=== PATIENT | female | born 1950 | race Caucasian/White ===

== ENCOUNTER 2020-09-23 04:40 | Day surgery (SDC) | payer OTHER ==
[2020-09-22 12:26] VITALS: BMI 22.9
[2020-09-23] MEDS ORDERED: LIDOCAINE HCL 2% JELLY 10 ML CARTRIDGE ONE (09:34)
[2020-09-23] MEDS ORDERED: ALBUTEROL SO4 HFA INHALER IH ONE (09:50)
[2020-09-23 10:00] VITALS: TEMP 97.6
[2020-09-23 11:24] VITALS: BP 139/61; PULSE 67
== END 2020-09-23 11:15 | disposition home or self-care (01) ==
LOC: JASU-ENDO 04:40
PROVIDERS: ATTEND Internal Medicine Gastroenterology
PROC: 0DBG8ZX Excision of Left Large Intestine, Via Natural or Artificial Opening Endoscopic, Diagnostic (ICD-10-PCS; 2020-09-23)
PROC: 0DBP8ZX Excision of Rectum, Via Natural or Artificial Opening Endoscopic, Diagnostic (ICD-10-PCS; principal; 2020-09-23 09:15)
DX: Z12.11 Encounter for screening for malignant neoplasm of colon (principal); Z86.010 Personal history of colon polyps; K62.0 Anal polyp; D12.6 Benign neoplasm of colon, unspecified
CPT/HCPCS: 88305-TC

== ENCOUNTER 2021-03-23 10:52 | Inpatient (IN) | payer OTHER ==
[2021-03-23 15:19] LABS: BASO % 0.5 % (0-2.0); EOS % 0.3 % (0-4.5); HEMOGLOBIN 13.6 GM/dL (10.7-15.3); LYMPH % 25.5 % (8-40); MCH 30.9 pg (25.7-33.7); MCHC 33.3 g/dl (32.0-36.0); MEAN CELL VOLUME 92.8 fl (80-96); MEAN PLT VOLUME 9.4 fl (7.5-11.1); MONO % 5.4 % (3.8-10.2); NEUT % 68.3 % (42.8-82.8); PLATELET COUNT 258 10^3/uL (134-434); RBC 4.42 M/mm3 (3.60-5.2); RDW 13.9 % (11.6-15.6); WHITE BLOOD COUNT 9.1 K/mm3 (4.0-10.0)
[2021-03-23 15:43] LABS: ALBUMIN 3.8 g/dl (3.4-5.0); BLOOD UREA NITROGEN 10.2 mg/dL (7-18); CALCIUM 9.4 mg/dL (8.5-10.1)
[2021-03-23 15:46] LABS: CREATININE 0.8 mg/dL (0.55-1.3)
[2021-03-23 15:48] LABS: BILIRUBIN,TOTAL 0.4 mg/dL (0.2-1); TOT PROT 7.3 g/dl (6.4-8.2)
[2021-03-23] MEDS ORDERED: PIPERACILLIN/TAZOB 4.5 GM 4.5 GM in DEXTROSE 5%-WATER 100 ML IVPB ONE (19:03)
[2021-03-23] MEDS ORDERED: VANCOMYCIN 1 GM in D5W (PRE-DOCKED) 1,000 MG/250 ML IVPB ONE (19:04)
[2021-03-23] MEDS ORDERED: LACTATED RINGERS SOLUTION 1,000 ML/1,000 ML INFUS.BAG IV SCH (19:15)
[2021-03-24 02:14] LABS: HEMATOCRIT 36.5 % (32.4-45.2); HEMOGLOBIN 12.3 GM/dL (10.7-15.3); MCH 31.2 pg (25.7-33.7); MCHC 33.8 g/dl (32.0-36.0); MEAN CELL VOLUME 92.1 fl (80-96); MEAN PLT VOLUME 8.9 fl (7.5-11.1); PLATELET COUNT 239 10^3/uL (134-434); RBC 3.96 M/mm3 (3.60-5.2); RDW 13.7 % (11.6-15.6); WHITE BLOOD COUNT 7.8 K/mm3 (4.0-10.0)
[2021-03-24 05:44] VITALS: BMI 22.5
[2021-03-24 09:36] LABS: HEMATOCRIT 39.4 % (32.4-45.2); HEMOGLOBIN 13.1 GM/dL (10.7-15.3); MCH 31.4 pg (25.7-33.7); MCHC 33.4 g/dl (32.0-36.0); MEAN CELL VOLUME 94.1 fl (80-96); MEAN PLT VOLUME 9.8 fl (7.5-11.1); PLATELET COUNT 236 10^3/uL (134-434); RBC 4.18 M/mm3 (3.60-5.2); RDW 13.6 % (11.6-15.6); WHITE BLOOD COUNT 6.7 K/mm3 (4.0-10.0)
[2021-03-24 09:48] LABS: INR 1.12 (0.83-1.09); PROTHROMBIN TIME (PATIENT) 12.6 SEC (9.7-13.0)
[2021-03-24 09:51] LABS: ACTIVATED PTT 17.5 SECONDS (25.2-36.5)
[2021-03-24 10:13] LABS: CALCIUM 8.6 mg/dL (8.5-10.1)
[2021-03-24 10:14] LABS: ALBUMIN 3.3 g/dl (3.4-5.0); MAGNESIUM 2.3 mg/dL (1.8-2.4)
[2021-03-24 10:16] LABS: CREATININE 0.6 mg/dL (0.55-1.3)
[2021-03-24 10:18] LABS: BILIRUBIN,TOTAL 0.5 mg/dL (0.2-1); TOT PROT 6.4 g/dl (6.4-8.2)
[2021-03-24] MEDS: LACTATED RINGERS SOLUTION 1,000 ML/1,000 ML INFUS.BAG IV SCH (11:35)
[2021-03-24 16:22] LABS: HEMATOCRIT 36.6 % (32.4-45.2); HEMOGLOBIN 12.2 GM/dL (10.7-15.3); MCH 30.7 pg (25.7-33.7); MCHC 33.3 g/dl (32.0-36.0); MEAN CELL VOLUME 92.3 fl (80-96); MEAN PLT VOLUME 9.4 fl (7.5-11.1); PLATELET COUNT 228 10^3/uL (134-434); RBC 3.97 M/mm3 (3.60-5.2); RDW 13.5 % (11.6-15.6); WHITE BLOOD COUNT 6.8 K/mm3 (4.0-10.0)
[2021-03-25] MEDS: LACTATED RINGERS SOLUTION 1,000 ML/1,000 ML INFUS.BAG IV SCH ×4 (00:42→18:36)
[2021-03-25 10:35] LABS: HEMATOCRIT 37.4 % (32.4-45.2); HEMOGLOBIN 12.4 GM/dL (10.7-15.3); MCH 31.1 pg (25.7-33.7); MCHC 33.2 g/dl (32.0-36.0); MEAN CELL VOLUME 93.7 fl (80-96); MEAN PLT VOLUME 9.4 fl (7.5-11.1); PLATELET COUNT 232 10^3/uL (134-434); RBC 3.99 M/mm3 (3.60-5.2); RDW 13.6 % (11.6-15.6); WHITE BLOOD COUNT 4.7 K/mm3 (4.0-10.0)
[2021-03-25 10:55] LABS: CALCIUM 8.3 mg/dL (8.5-10.1)
[2021-03-25 10:59] LABS: CREATININE 0.7 mg/dL (0.55-1.3)
[2021-03-26 08:39] LABS: BASO % 0.9 % (0-2.0); EOS % 5.8 % (0-4.5); HEMATOCRIT 39.6 % (32.4-45.2); HEMOGLOBIN 13.1 GM/dL (10.7-15.3); LYMPH % 40.3 % (8-40); MCH 30.9 pg (25.7-33.7); MCHC 33.1 g/dl (32.0-36.0); MEAN CELL VOLUME 93.4 fl (80-96); MEAN PLT VOLUME 9.8 fl (7.5-11.1); MONO % 8.1 % (3.8-10.2); NEUT % 44.9 % (42.8-82.8); PLATELET COUNT 242 10^3/uL (134-434); RBC 4.24 M/mm3 (3.60-5.2); RDW 13.7 % (11.6-15.6); WHITE BLOOD COUNT 4.7 K/mm3 (4.0-10.0)
[2021-03-26 08:55] LABS: CALCIUM 8.4 mg/dL (8.5-10.1)
[2021-03-26 08:56] LABS: ALBUMIN 2.8 g/dl (3.4-5.0); BLOOD UREA NITROGEN 7.9 mg/dL (7-18)
[2021-03-26 08:59] LABS: CREATININE 0.7 mg/dL (0.55-1.3)
[2021-03-26 09:00] LABS: BILIRUBIN,TOTAL 0.5 mg/dL (0.2-1)
[2021-03-26 14:02] VITALS: BP 128/76; PULSE 73; TEMP 98.3
== END 2021-03-26 19:00 | disposition home or self-care (01) | DRG 394 ==
LOC: JER 10:52 → JERBED 20:15 → J8W 03-24 05:12
PROVIDERS: ADMIT Internal Medicine; ATTEND Internal Medicine
DX: K55.9 Vascular disorder of intestine, unspecified (principal); K62.5 Hemorrhage of anus and rectum
CPT/HCPCS: 36415; 74177-TC; 80048; 80053; 80061; 82272; 83605; 83615; 83735; 84443; 85025; 85027; 85610; 85730; 86140; 86850; 86900; 86901; 93005; 93010; 99285-25; C9803; Q9967; U0003; U0005

== ENCOUNTER 2021-05-19 05:02 | Day surgery (SDC) | payer OTHER ==
[2021-05-16 14:11] VITALS: BMI 23.5
[2021-05-19 11:15] VITALS: TEMP 98.2
[2021-05-19 12:26] VITALS: BP 122/66; PULSE 76
== END 2021-05-19 12:15 | disposition home or self-care (01) ==
LOC: JASU-ENDO 05:02
PROVIDERS: ATTEND Internal Medicine Gastroenterology
PROC: 0DJD8ZZ Inspection of Lower Intestinal Tract, Via Natural or Artificial Opening Endoscopic (ICD-10-PCS; principal; 2021-05-19 10:45)
DX: Z85.048 Personal history of other malignant neoplasm of rectum, rectosigmoid junction, and anus (principal); K57.30 Diverticulosis of large intestine without perforation or abscess without bleeding

== ENCOUNTER 2021-10-04 04:23 | Day surgery (SDC) | payer OTHER ==
[2021-09-29 10:59] VITALS: BMI 22.4
[2021-10-04] MEDS ORDERED: ONDANSETRON 4 MG/2 ML VIAL IVPUSH PRN (15:00)
[2021-10-04] MEDS ORDERED: oxyCODONE HCL 5 MG TABLET PO PRN (15:00)
[2021-10-04] MEDS ORDERED: LACTATED RINGERS SOLUTION 1,000 ML IV SCH (15:00)
[2021-10-04] MEDS ORDERED: PROPOFOL 20 ML ONE (16:11)
[2021-10-04] MEDS ORDERED: MIDAZOLAM HCL 2 MG/2 ML SINGLE DOSE VIAL ONE (16:11)
[2021-10-04] MEDS ORDERED: DEXAMETHASONE SOD PHOSPHATE 4 MG/1 ML VIAL ONE ×3 (16:11→17:21)
[2021-10-04] MEDS ORDERED: LIDOCAINE HCL/PF 2% SDV 5ML VIAL ONE (16:11)
[2021-10-04] MEDS ORDERED: ISOSULFAN BLUE 50 MG/5 ML VIAL SQ ONE (16:12)
[2021-10-04] MEDS ORDERED: BETAMET ACET/BETAMET NA PH 30 MG/5 ML VIAL ONE (16:14)
[2021-10-04] MEDS ORDERED: ceFAZolin SODIUM 1 GM VIAL IVPB ONE (16:59)
[2021-10-04] MEDS ORDERED: ceFAZolin SODIUM 1 GM VIAL ONE (17:00)
[2021-10-04] MEDS ORDERED: LIDOCAINE HCL 1%, 10 MG/ML (20ML VIAL) NR ONE ×2 (17:14)
[2021-10-04] MEDS ORDERED: BACITRACIN 15 GM TUBE TOPICAL OINTMENT ONE (17:48)
[2021-10-04 18:29] VITALS: TEMP 97.2
[2021-10-04] MEDS ORDERED: FENTANYL CITRATE/PF 50 MCG/ML VIAL ONE (18:31)
[2021-10-04] MEDS ORDERED: oxyCODONE HCL 5 MG TABLET ONE (19:07)
[2021-10-04 19:14] VITALS: PULSE 74
[2021-10-04 20:03] VITALS: BP 130/71
== END 2021-10-04 20:13 | disposition home or self-care (01) ==
LOC: JASU-SURG 04:23
PROVIDERS: ATTEND Surgery
PROC: 0HBY0ZZ Excision of Supernumerary Breast, Open Approach (ICD-10-PCS; principal; 2021-10-04 13:30)
DX: C50.911 Malignant neoplasm of unspecified site of right female breast (principal)
CPT/HCPCS: 78195-TC; 88307-TC; 88342-TC; 94760; A9541

== ENCOUNTER 2022-11-07 12:20 | Day surgery (SDC) | payer OTHER ==
[~2022-11-07 12:20] MED LIST: ZOLEDRONIC ACID/MAN/WATER 5 MG/100 ML INFUS..BTL IVPB ONE
[2022-11-07 15:19] VITALS: BP 140/67; PULSE 78; RESP 18
[2022-11-08 07:28] VITALS: TEMP 97.1
== END 2022-11-07 13:30 | disposition home or self-care (01) ==
LOC: JONCNONCHE 12:20 → J7W 12:21 → JONCNONCHE 13:30
PROVIDERS: ATTEND Internal Medicine Hematology & Oncology
PROC: 3E033GC Introduction of Other Therapeutic Substance into Peripheral Vein, Percutaneous Approach (ICD-10-PCS; principal; 2022-11-07)
DX: C50.111 Malignant neoplasm of central portion of right female breast (principal); Z17.0 Estrogen receptor positive status [ER+]; Z76.89 Persons encountering health services in other specified circumstances
CPT/HCPCS: 96365; J3489

== ENCOUNTER 2023-10-25 06:33 | Day surgery (SDC) | payer OTHER ==
[2023-10-18 14:52] VITALS: BMI 23.1
[2023-10-25 08:22] VITALS: TEMP 98.2
[2023-10-25 08:49] VITALS: BP 136/69; PULSE 68; RESP 16
== END 2023-10-25 09:15 | disposition home or self-care (01) ==
LOC: JASU-ENDO 06:33
PROVIDERS: ATTEND Internal Medicine Gastroenterology
PROC: 0D5P8ZZ Destruction of Rectum, Via Natural or Artificial Opening Endoscopic (ICD-10-PCS; 2023-10-25)
PROC: 0DBP8ZX Excision of Rectum, Via Natural or Artificial Opening Endoscopic, Diagnostic (ICD-10-PCS; principal; 2023-10-25 07:30)
DX: Z12.11 Encounter for screening for malignant neoplasm of colon (principal); K62.1 Rectal polyp; D37.4 Neoplasm of uncertain behavior of colon; K57.30 Diverticulosis of large intestine without perforation or abscess without bleeding; Z86.010 Personal history of colon polyps
CPT/HCPCS: 88305-TC

== ENCOUNTER 2024-01-23 12:50 | Day surgery (SDC) | payer OTHER ==
[2024-01-23] MEDS: ZOLEDRONIC ACID/MAN/WATER 5 MG/100 ML INFUS..BTL IVPB ONE (13:05)
[2024-01-23 14:04] VITALS: BP 115/65; PULSE 86; RESP 18; TEMP 98.6
== END 2024-01-23 14:10 | disposition home or self-care (01) ==
LOC: JONCCHEMO 12:50 → J7W 12:51 → JONCCHEMO 14:10
PROVIDERS: ATTEND Internal Medicine Hematology & Oncology
DX: Z51.11 Encounter for antineoplastic chemotherapy (principal); C50.911 Malignant neoplasm of unspecified site of right female breast
CPT/HCPCS: 96413; J3489

== ENCOUNTER 2024-01-31 04:34 | Day surgery (SDC) | payer OTHER ==
[2024-01-24 14:25] VITALS: BMI 23.0
[2024-01-31 11:01] VITALS: TEMP 97.4
[2024-01-31 11:06] VITALS: RESP 18
[2024-01-31 11:08] VITALS: BP 118/64; PULSE 72
== END 2024-01-31 11:22 | disposition home or self-care (01) ==
LOC: JASU-ENDO 04:34
PROVIDERS: ATTEND Internal Medicine Gastroenterology
PROC: 0DBP8ZX Excision of Rectum, Via Natural or Artificial Opening Endoscopic, Diagnostic (ICD-10-PCS; principal; 2024-01-31 10:00)
DX: D12.8 Benign neoplasm of rectum (principal); Z86.0100 Personal history of colon polyps, unspecified
CPT/HCPCS: 88305-TC

== ENCOUNTER → 2024-07-02 | Day surgery (SDC) | payer OTHER | END | disposition home or self-care (01) | LOC: FMAMMOTONE 12:14 | PROVIDERS: ATTEND Surgery | PROC: 0HBT3ZX Excision of Right Breast, Percutaneous Approach, Diagnostic (ICD-10-PCS; principal; 2024-07-02) | DX: N64.1 Fat necrosis of breast (principal); N64.89 Other specified disorders of breast; R92.8 Other abnormal and inconclusive findings on diagnostic imaging of breast | CPT/HCPCS: 19081; 76098-TC-FY; 87899; 88305-TC; A4648 ==